=== PATIENT | male | born 1985 | race Caucasian/White ===

== ENCOUNTER 2024-12-31 11:03 | Emergency (ER) | payer BC ==
[~2024-12-31] VITALS: Ht 175.3 cm; Wt 100.0 kg
[2024-12-31 11:27] VITALS: O2SAT 98
[2024-12-31] MEDS: IBUPROFEN 600MG TABLET PO ONE (12:11)
[2024-12-31] MEDS: BACITRACIN ZINC OINT UDPKT TOP ONE (12:11)
[2024-12-31] MEDS: LIDOCAINE HCL/PF 1% 10 MG/ML 5ML VIAL INFIL ONE (12:12)
[2024-12-31 14:35] VITALS: BP 162/111; PULSE 78; RESP 14; TEMP 36.8; O2SAT 98
== END 2024-12-31 14:35 | disposition home or self-care (01) ==
LOC: ER 11:03
DX: S71.111A Laceration without foreign body, right thigh, initial encounter (principal); Z91.52 Personal history of nonsuicidal self-harm; W45.8XXA Other foreign body or object entering through skin, initial encounter; Y93.89 Activity, other specified; Y92.89 Other specified places as the place of occurrence of the external cause; Y99.8 Other external cause status
CPT/HCPCS: 12002; 99283; J2003; Z7610 ×2

== ENCOUNTER 2025-01-03 09:05 | Emergency (ER) | payer BC ==
[~2025-01-03] VITALS: Ht 175.3 cm; Wt 99.7 kg
[2025-01-03 09:15] VITALS: O2SAT 99
[2025-01-03] MEDS ORDERED: TC025C15 TP (09:57)
[2025-01-03 10:04] VITALS: BP 164/92; PULSE 72; RESP 16; TEMP 36.7; O2SAT 99
== END 2025-01-03 10:04 | disposition home or self-care (01) ==
LOC: ER 09:05
DX: L30.9 Dermatitis, unspecified (principal); Z48.02 Encounter for removal of sutures
CPT/HCPCS: 99283